=== PATIENT | male | born 1985 | race Caucasian/White ===

== ENCOUNTER 2016-11-14 03:27 | Emergency (ER) | payer MEDICAID ==
[~2016-11-14] VITALS: Ht 177.8 cm; Wt 77.0 kg
[~2016-11-14 03:27] MED LIST: INSLAN; METF500T4; PHEN100C4
[2016-11-14] MEDS ORDERED: PHENYTOIN SODIUM 1,000 MG in SODIUM CHLORIDE 0.9% 100 ML IV ONE (03:45)
[2016-11-14 04:08] LABS: BASOPHILS % 0.6 % (0.0-2.0); EOSINOPHILS % 2.7 % (0.0-5.0); HEMATOCRIT. 49.7 % (42.0-52.0); HEMOGLOBIN. 16.4 g/dL (14.0-18.0); LYMPHOCYTES % 18.6 % (20.0-50.0); MEAN CORPUSCULAR HEMOGLOBIN 29.5 pg (28.0-32.0); MEAN CORPUSCULAR VOLUME 89.1 fL (80.0-94.0); MEAN PLATELET VOLUME 9.2 fl (7.4-10.4); MONOCYTES % 9.2 % (2.0-8.0); NEUTROPHILS % 68.9 % (40.0-76.0); PLATELET 155 x1000/uL (130-400); RED BLOOD CELL COUNT 5.57 mill/uL (4.7-6.1); RED CELL DISTRIBUTION WIDTH 13.2 % (11.6-14.6)
[2016-11-14 04:23] LABS: CARBON DIOXIDE 20 mEq/L (21-32); CHLORIDE 103 mEq/L (98-107); ETHANOL BLOOD < 10 mg/dL
[2016-11-14 05:49] VITALS: BP 109/59
== END 2016-11-14 05:54 | disposition home or self-care (01) ==
LOC: ER 03:27
DX: G40.909 Epilepsy, unspecified, not intractable, without status epilepticus (principal); S09.93XA Unspecified injury of face, initial encounter; R51 Headache; X58.XXXA Exposure to other specified factors, initial encounter; Y93.89 Activity, other specified; Y92.89 Other specified places as the place of occurrence of the external cause; R03.0 Elevated blood-pressure reading, without diagnosis of hypertension; E11.9 Type 2 diabetes mellitus without complications; F12.10 Cannabis abuse, uncomplicated; Z79.4 Long term (current) use of insulin
CPT/HCPCS: 36415; 80053; 82962; 85025; 96365; 96366; 99285; G0482; J1165; J7040; Z7610; J7050